=== PATIENT | male | born 1980 | race African-American/Black ===

== ENCOUNTER 2019-08-12 09:29 | Emergency (ER) | payer OTHER ==
[~2019-08-12] VITALS: Ht 175.3 cm; Wt 113.4 kg
[2019-08-12 09:37] VITALS: Ht 175.3 cm; Wt 113.4 kg
[2019-08-12 12:47] VITALS: BP 121/67
== END 2019-08-12 12:47 | disposition home or self-care (01) ==
LOC: ED 09:29
DX: L02.31 Cutaneous abscess of buttock (principal)
CPT/HCPCS: J1885; J2001; J2270; Q0163

== ENCOUNTER 2019-08-16 08:59 | Emergency (ER) | payer OTHER ==
[~2019-08-16] VITALS: Ht 175.3 cm; Wt 112.5 kg
[2019-08-16 09:15] VITALS: Ht 175.3 cm; Wt 112.5 kg
[2019-08-16 09:52] VITALS: BP 138/86
== END 2019-08-16 09:52 | disposition home or self-care (01) ==
LOC: ED 08:59
DX: L02.31 Cutaneous abscess of buttock (principal); Z48.01 Encounter for change or removal of surgical wound dressing

== ENCOUNTER 2019-08-18 09:27 | Emergency (ER) | payer OTHER ==
[~2019-08-18] VITALS: Ht 175.3 cm; Wt 112.9 kg
[2019-08-18 10:25] VITALS: Ht 175.3 cm; Wt 112.9 kg
[2019-08-18 11:59] VITALS: BP 126/87
== END 2019-08-18 12:00 | disposition home or self-care (01) ==
LOC: ED 09:27
DX: L02.31 Cutaneous abscess of buttock (principal)

== ENCOUNTER 2019-09-02 11:48 | Emergency (ER) | payer OTHER ==
[~2019-09-02] VITALS: Ht 175.3 cm; Wt 110.7 kg
[2019-09-02 11:56] VITALS: Ht 175.3 cm; Wt 110.7 kg
[2019-09-02 15:00] VITALS: BP 129/87
== END 2019-09-02 15:00 | disposition home or self-care (01) ==
LOC: ED 11:48
DX: L02.31 Cutaneous abscess of buttock (principal)
CPT/HCPCS: J2001; J2270; J3010

== ENCOUNTER 2019-10-26 19:52 | Emergency (ER) | payer SELFPAY ==
[~2019-10-26] VITALS: Ht 175.3 cm; Wt 109.8 kg
[2019-10-26 20:01] VITALS: Ht 175.3 cm; Wt 109.8 kg
[2019-10-26 22:22] VITALS: BP 112/61
== END 2019-10-26 22:00 | disposition home or self-care (01) ==
LOC: ED 19:52
DX: L02.31 Cutaneous abscess of buttock (principal)
CPT/HCPCS: J1885; J2001; J2270